=== PATIENT | female | born 1970 | race Caucasian/White ===

== ENCOUNTER 2019-01-23 15:07 | Emergency (ER) | payer MEDICAID ==
[~2019-01-23] VITALS: Ht 154.9 cm; Wt 79.8 kg
[~2019-01-23 15:07] MED LIST: COLACE100 MG PO; FERROUS SULFAT325 M2 PO; NORCO1 TA2 PO; VITAMIN C250 M1 PO; ZOLOFT25 MG PO
[2019-01-23 15:24] VITALS: Ht 154.9 cm; Wt 79.8 kg
[2019-01-23 16:59] LABS: BASOPHIL % 0.3 % (0-2); PLATELET COUNT 239 x10^3mcL (130-400); RED CELL DISTRIBUTION WIDTH 13.3 % (11.5-14.5)
[2019-01-23 17:18] LABS: CARBON DIOXIDE 29.8 mmol/L (21-32); CHLORIDE SERUM 104 mmol/L (98-107); CREATININE SERUM 0.9 mg/dL (0.6-1.0); GFR1 > 60 mL/min; GLUCOSE SERUM 90 mg/dL (74-106); POTASSIUM SERUM 3.7 mmol/L (3.5-5.1); SODIUM SERUM 139 mmol/L (136-145)
[2019-01-23 17:22] LABS: FREE T4 1.11 ng/dL (0.76-1.46); FREE THYROXINE INDEX 3.6 ug/dL (1.4-4.5); T4(THYROXINE) 10.8 ug/dL (4.7-13.3)
[2019-01-23 17:23] LABS: CK-MB 1.5 ng/mL (0-3.6)
[2019-01-23 17:25] LABS: T3 TOTAL 1.43 ng/mL
[2019-01-23 17:40] LABS: ERYTHROCYTE SED RATE 24 mm/hr (0-20)
[2019-01-23 17:43] LABS: ALBUMIN 3.6 g/dL (3.4-5.0); ALKALINE PHOSPHATASE 116 U/L (46-116); ALT/SGPT 47 U/L (14-59); AST/SGOT 23 U/L (15-37); BILIRUBIN TOTAL 0.3 mg/dL (0.20-1.00); C REACTIVE PROTEIN 2.8 mg/dL (<=0.9)
[2019-01-23 17:49] LABS: UA SPECIFIC GRAVITY 1.025 (1.005-1.035); microscopic required? YES; urine erythrocyte NEGATIVE (NEGATIVE)
[2019-01-23 19:00] VITALS: BP 116/55
== END 2019-01-23 19:00 | disposition home or self-care (01) ==
LOC: ED 15:07
PROVIDERS: Specialist
DX: J20.9 Acute bronchitis, unspecified (principal); F17.210 Nicotine dependence, cigarettes, uncomplicated; Z88.1 Allergy status to other antibiotic agents
CPT/HCPCS: 36415; 83880; 84439; 87804; J7030; J7613; J7644; Q0092

== ENCOUNTER 2020-01-05 13:55 | Emergency (ER) | payer MEDICAID ==
[~2020-01-05] VITALS: Ht 154.9 cm; Wt 78.0 kg
[2020-01-05 14:19] VITALS: BP 135/85; Ht 154.9 cm; Wt 78.0 kg
== END 2020-01-05 16:54 | disposition left against medical advice (07) ==
LOC: ED 13:55
DX: J40 Bronchitis, not specified as acute or chronic (principal); Z88.1 Allergy status to other antibiotic agents